=== PATIENT | male | born 1990 | race Caucasian/White ===

== ENCOUNTER 2018-01-14 13:21 | Emergency (ER) | END 2018-01-14 16:49 | disposition home or self-care (01) ==

== ENCOUNTER 2018-01-19 09:09 | Emergency (ER) | END 2018-01-19 11:14 | disposition left against medical advice (07) ==

== ENCOUNTER 2019-03-08 19:26 | Emergency (ER) | payer OTHER ==
[~2019-03-08] VITALS: Ht 165.1 cm; Wt 95.6 kg
[~2019-03-08 19:26] MED LIST: NAPR-985 PO
[2019-03-08 20:00] VITALS: BP 153/76; PULSE 70; RESP 19; Ht 165.1 cm; Wt 95.6 kg
== END 2019-03-08 21:04 | disposition home or self-care (01) ==
LOC: FTE 19:26
DX: S83.91XA Sprain of unspecified site of right knee, initial encounter (principal); F17.210 Nicotine dependence, cigarettes, uncomplicated; X50.1XXA Overexertion from prolonged static or awkward postures, initial encounter; Y92.89 Other specified places as the place of occurrence of the external cause
CPT/HCPCS: 99282